=== PATIENT | male | born 1990 | race Caucasian/White ===

== ENCOUNTER 2017-06-27 12:07 | Emergency (ER) | payer OTHER ==
[2017-06-27] MEDS ORDERED: Zithromax 250 MG TABLET PO ONE (12:24)
[2017-06-27] MEDS ORDERED: Naprosyn 500 MG PO ONE (12:25)
[2017-06-27] MEDS ORDERED: Zithromax 250 MG TABLET ONE (12:27)
--- NOTE | 2017-06-27 12:30 | ERPHSYRPT ---
- History of Present Illness Time Seen by Provider: 06/27/17 12:18 Source: patient Exam Limitations: no limitations Patient Subjective Stated Complaint: pt reports swelling and tenderness to right ear-reports started a few days ago with symptoms worsening with time- deniesf ever-reports left ear was swollen but it had gotten better Triage Nursing Assessment: pt pink warm and [id number] easy and nonlabored- no drainage noted at thsi time Physician History: ABOUT 2 WEEKS AGO PT PT STARTED WITH A LEFT EARACHE WHICH HAS LARGELY RESOLVED. ABOUT 12 DAYS AGO PT STARTED WITH A RIGHT EARACHE WHICH IS STILL PAINFUL WITH SWELLING. PT DENIES FEVER, COUGH, CHEST PAIN, ABDOMINAL PAIN. Allergies/Adverse Reactions: No Known Drug Allergies Allergy (Unverified 06/27/17 12:17) Home Medications: Levothyroxine Sodium 88 Mcg [Synthroid 88 Mcg] 88 mcg PO DAILY 06/27/17 [ History] Hx Tetanus, Diphtheria Vaccination/Date Given: Yes Hx Influenza Vaccination/Date Given: No Hx Pneumococcal Vaccination/Date Given: No Immunizations Up to Date: Yes - Review of Systems Constitutional: No Fever Ears, Nose, & Throat: Ear Pain Respiratory: No Cough, No Dyspnea Cardiac: No Chest Pain All Other Systems: Reviewed and Negative - Past Medical History Pertinent Past Medical History: Yes Endocrine Medical History: Hyperthyroidism - Past Surgical History Past Surgical History: No - Social History Smoking Status: Never smoker Exposure to second hand smoke: No Drug Use: none Patient Lives Alone: No - Nursing Vital Signs Nursing Vital Signs: Initial Vital Signs Temperature 97.6 F 06/27/17 12:12 Pulse Rate 71 06/27/17 12:12 Respiratory Rate 16 06/27/17 12:12 Blood Pressure 159/87 06/27/17 12:12 O2 Sat by Pulse Oximetry 100 06/27/17 12:12 Pain Scale Pain Intensity 3 - Physical Exam General Appearance: alert Eye Exam: PERRL/EOMI Ears, Nose, Throat Exam: pharynx normal, moist mucous membranes, TM abnormal (R ) (RIGHT TM ERYTHEMATOUS; MILD EDEMA AND ERYTHEMA OF THE RIGHT EXTERNAL AUDITORY CANAL.) Neck Exam: normal inspection Respiratory Exam: lungs clear Cardiovascular Exam: normal heart sounds Gastrointestinal/Abdomen Exam: soft, normal bowel sounds Back Exam: normal range of motion Extremity Exam: normal range of motion Neurologic Exam: alert, cooperative Skin Exam: warm, dry SpO2 Interpretation: normal SpO2: 100 Oxygen Delivery: Room Air - Course Nursing assessment & vital signs reviewed: Yes - Departure Time of Disposition: 12:33 Departure Disposition: Home Clinical Impression: ROM (right otitis media), RIGHT OTITIS EXTERNA Condition: Stable Critical Care Time: No Instructions: Ear Infections (Otitis Media) (DC) Additional Instructions: FOLLOW UP WITH PRIVATE DOCTOR TOMORROW. Prescriptions: Naproxen [Naprosyn] 500 mg PO Q12H PRN PRN #20 tablet PRN Reason: Pain Azithromycin 250 mg [Zithromax 250 MG TABLET] 250 mg PO ZPACK #6 tablet Balta/Baci/Poly/Hc Ear Susp [Cortisporin Ear Drops 10 ml Suspension] 5 drops OT BID #1 bottle
[2017-06-27 12:45] VITALS: BP 138/80; PULSE 78; O2SAT 98
== END 2017-06-27 12:45 | disposition home or self-care (01) ==
LOC: ED 12:07
DX: H66.91 Otitis media, unspecified, right ear (principal); H60.91 Unspecified otitis externa, right ear
CPT/HCPCS: 99282; 99283; A9270-GY

== ENCOUNTER 2017-07-02 03:48 | Emergency (ER) | payer OTHER ==
[2017-07-02] MEDS ORDERED: XYLOCAINE 2% HCL 20 ML MDV IJ ONE (04:09)
[2017-07-02] MEDS ORDERED: XYLOCAINE 2% HCL 20 ML MDV ONE (04:14)
--- NOTE | 2017-07-02 04:17 | ERPHSYRPT ---
- History of Present Illness Time Seen by Provider: 07/02/17 04:07 Source: patient Exam Limitations: clinical condition Patient Subjective Stated Complaint: pt states he began having pain in his rt thumb tonight and has increased tonight. states his thumb was pinched between 2 peices of metal a few days ago but did not cause much pain at that time Triage Nursing Assessment: pt alert and oriented, answers questions approp. pt ambulatory with steady gait noted, respirations nonlabored with lungs cta. swelling and tenderness noted to rt thumb. Physician History: PATIENT STATES HE PINCHED HIS RIGHT THUMB BETWEEN 2 PIECES OF METAL 2 DAYS AGO NOW HAS THROBBING PAIN TO HIS THUMB, WORSE ADJACENT TO TIP OF THUMB. HE STATES A SHARP PIECE OF METAL PERFORATE HIS MID THUMB. HAS ASSOCIATED SWELLING WITH PAIN. PAIN HAS MARKEDLY INCREASED OVER THE PAST 2 HOURS, NOTICED CLEAR DRAINAGE FROM NAIL FOLD OF RIGHT THUMB Occurred: hours ago Method of Injury: direct blow Quality: constant Severity of Pain-Max: moderate Severity of Pain-Current: moderate Extremities Pain Location: thumb: right Modifying Factors: Improves With: movement Associated Symptoms: other (PAIN) Allergies/Adverse Reactions: No Known Drug Allergies Allergy (Verified 07/02/17 04:05) Home Medications: Levothyroxine Sodium 88 Mcg [Synthroid 88 Mcg] 88 mcg PO DAILY 06/27/17 [ History] Hx Tetanus, Diphtheria Vaccination/Date Given: No (unsure) Hx Influenza Vaccination/Date Given: No Hx Pneumococcal Vaccination/Date Given: No Immunizations Up to Date: No - Review of Systems Constitutional: No Symptoms Musculoskeletal: Injury, Joint Redness, Joint Pain, Joint Swelling - Past Medical History Pertinent Past Medical History: Yes Endocrine Medical History: Hypothyroidism - Past Surgical History Past Surgical History: No - Social History Smoking Status: Never smoker Exposure to second hand smoke: No Drug Use: none Patient Lives Alone: No - Nursing Vital Signs Nursing Vital Signs: Initial Vital Signs Temperature 97.6 F 07/02/17 03:53 Pulse Rate 93 H 07/02/17 03:53 Respiratory Rate 18 07/02/17 03:53 Blood Pressure 167/93 07/02/17 03:53 O2 Sat by Pulse Oximetry 100 07/02/17 03:53 Pain Scale Pain Intensity 10 - Physical Exam General Appearance: alert Hand Exam: soft tissue tenderness (RIGHT THUMB WITH MARKED TENDERNESS TIP OF DISTAL PHALANGX RADIAL ASPECT OF TIP, APPEARANCE OF SLIGHT BLUISH FOREIGN BELOW THUMB NAIL, SLIGHT SWELLING PROXIMAL AND DISTAL RIGHT THUMB WITH ERYTHEMA) , stiffness, swelling SpO2: 100 Oxygen Delivery: Room Air Procedures - Incision and Drainage Site: DISTAL RIGHT THUMB Anesthesia: 2% Lidocaine cc's of anesthesia: 4 Blade Size: 11 I & D Procedure: hibiclens prep Results: moderate amount pus (4-0 ETHILON -1 SUTURE) Ordered Tests: Active Orders 24 hr Category Date Time Status IV Insertion STAT Care 07/02/17 04:42 Active HAND (MINIMUM 3 VIEWS) Stat Exams 07/02/17 04:08 Taken CULTURE,WOUND Stat Lab 07/02/17 05:10 Ordered Medication Summary Discontinued Medications Generic Name Dose Route Start Last Admin Trade Name Freq PRN Reason Stop Dose Admin Hydrocodone Bitart/Acetaminophen 2 tab 07/02/17 05:23 [place] 10/325 Mg Tablet PO 07/02/17 05:24 SENT HOME W/ PATIENT ONE Diphtheria/Tetanus/Acell Pertussis 0.5 ml 07/02/17 05:10 07/02/17 05:14 Adacel Vial IM 07/02/17 05:11 0.5 ml .ONCE ONE Administration Diphtheria/Tetanus/Acell Pertussis Confirm 07/02/17 05:15 Adacel Vial Administered 07/02/17 05:16 Dose 0.5 ml IM .STK-MED ONE Ceftriaxone Sodium/Dextrose 1 g in 50 mls @ 100 mls/hr 07/02/17 04:42 05:03 Rocephin 1 Gm-D5w 50 Ml Bag IV 07/02/17 05:11 100 mls/hr STAT STA Administration Ceftriaxone Sodium/Dextrose Confirm 07/02/17 05:02 Rocephin 1 Gm-D5w 50 Ml Bag Administered 07/02/17 05:03 Dose 1 g in 50 mls @ ud IV .STK-MED ONE Lidocaine HCl 4 ml 07/02/17 04:09 07/02/17 05:03 Xylocaine 2% Hcl 20 Ml Mdv IJ 07/02/17 04:10 4 ml STAT ONE Administration Lidocaine HCl Confirm 07/02/17 04:14 Xylocaine 2% Hcl 20 Ml Mdv Administered 07/02/17 04:15 Dose 5 ml .ROUTE .STK-MED ONE - Progress Progress: improved, pain not gone completely Progress Note: 07/02/17 05:04 IV ROCEPHIN 1GM IVPB. Counseled pt/family regarding: diagnosis, need for follow-up, rad results - Departure Time of Disposition: 05:30 Departure Disposition: Home Clinical Impression: CELLULITIS RIGHT THUMB Condition: Stable Critical Care Time: No Referrals: DOCTOR,NO FAMILY [Primary Care Provider] - Additional Instructions: ANTIBIOTIC AUGMENTIN 875MG TWICE DAILY FOR 10 DAYS. NORCO 10/325 EVERY 4 HOURS NEEDED FOR PAIN. TYLENOL OR MOTRIN NEEDED FOR FEVER. CONSULT YOUR PRIMARY CARE PROVIDER FOR FOLLOWUP. HAVE SUTURE REMOVED AT 10 DAYS. WATCH FOR INCREASING SIGNS OF INFECTION, REDNESS, DRAINAGE OR SWELLING. Prescriptions: Hydrocodone/APAP 10/325 mg [[place] 10/325 MG Tablet] 1 tab PO Q4H PRN PRN # 15 tablet MDD 4 PRN Reason: Pain Amox Tr/Potass Clav. 875 mg [Augmentin 875-125 Tablet] 875 mg PO BID #20 tablet
[2017-07-02] MEDS ORDERED: ROCEPHIN 1 Gm-D5w 50 ml Bag** 1 G/50 ML IVPB IV STA (04:42)
[2017-07-02] MEDS ORDERED: ROCEPHIN 1 Gm-D5w 50 ml Bag** 1 G/50 ML IVPB IV ONE (05:02)
[2017-07-02] MEDS ORDERED: Adacel Vial IM ONE ×2 (05:10→05:15)
[2017-07-02] MEDS ORDERED: Norco 10/325 MG Tablet PO ONE (05:23)
[2017-07-02] MEDS ORDERED: Norco 10/325 MG Tablet ONE (05:27)
[2017-07-02 05:32] VITALS: BP 138/75; PULSE 74; O2SAT 98
--- NOTE | 2017-07-02 08:44 | XRAY ---
Indication: Thumb pain. Comparison: None 3 views of the right hand obtained using portable technique. No bony, articular, or soft tissue abnormalities.
== END 2017-07-02 05:45 | disposition home or self-care (01) ==
LOC: ED 03:48
PROC: 0H9FXZZ Drainage of Right Hand Skin, External Approach (ICD-10-PCS; principal; 2017-07-02)
DX: L03.011 Cellulitis of right finger (principal); W23.0XXA Caught, crushed, jammed, or pinched between moving objects, initial encounter; E03.9 Hypothyroidism, unspecified
CPT/HCPCS: 10060; 36000; 73130; 87070; 87077; 87186; 90471; 90715; 96365; 96372; 99283; 99284; J0696; A9270-GY

== ENCOUNTER 2017-09-05 22:07 | Emergency (ER) | payer OTHER ==
[2017-09-05 22:15] VITALS: BP 138/80; PULSE 88; O2SAT 98
--- NOTE | 2017-09-05 22:32 | ERPHSYRPT ---
- History of Present Illness Time Seen by Provider: 09/05/17 22:18 Source: patient Exam Limitations: no limitations Patient Subjective Stated Complaint: Pt states "I guess I am here because of anger issues. I got into an argument and now they think I am going to hurt someone I guess." Triage Nursing Assessment: Pt alert and oriented X 3, skin pwd. PT ambulates with an upright steady gait, able to speak in clear full sentences. PT in no apparent respiratory distress. Physician History: Pt states, he was having an argument with his ubaldo, he walked out, left his home at home after he told his " to get out of the house". She called police and they caught him walking on the street. He denies any injury, taking any drugs or alcohol, denies making any threats against his , denies being suicidal or homicidal. He has the history of " anxiety", "stress" he has been treated as inpatient in [facility]ry about 1 month ago, because of "anger issues". He is calm and cooperative, denies any complaints. Timing/Duration: today Severity of Symptoms-Max: mild Severity of Symptoms-Current: mild Context related to: spouse Suicidal thoughts: other (denies) Associated Symptoms: denies symptoms Previous symptoms: same symptoms as today Allergies/Adverse Reactions: No Known Drug Allergies Allergy (Verified 07/02/17 04:05) Home Medications: Levothyroxine Sodium 88 Mcg [Synthroid 88 Mcg] 88 mcg PO DAILY 06/27/17 [ History] Bupropion HCl [Wellbutrin] 75 mg PO BID 09/05/17 [History] Dextroamphetamine/Amphetamine [Adderall 15 mg Tablet] 30 mg PO DAILY 09/05/17 [ History] Gabapentin 400 mg PO BID 09/05/17 [History] Hx Tetanus, Diphtheria Vaccination/Date Given: Yes Hx Influenza Vaccination/Date Given: Yes Hx Pneumococcal Vaccination/Date Given: No Immunizations Up to Date: Yes - Past Medical History Pertinent Past Medical History: Yes Endocrine Medical History: Hypothyroidism Other Medical History: PTSD, anger issues - Past Surgical History Past Surgical History: No - Social History Smoking Status: Never smoker Exposure to second hand smoke: No Drug Use: none Patient Lives Alone: No - Review of Systems Constitutional: No Symptoms Psychological: Anxiety, No Suicidal Ideations, No Homicidal Ideations, No Hallucinations All Other Systems: Reviewed and Negative - Nursing Vital Signs Nursing Vital Signs: Initial Vital Signs Temperature 98.8 F 09/05/17 22:08 Pulse Rate 88 09/05/17 22:08 Respiratory Rate 18 09/05/17 22:08 Blood Pressure 138/80 09/05/17 22:08 O2 Sat by Pulse Oximetry 98 09/05/17 22:08 Pain Scale Pain Intensity 0 - Physical Exam General Appearance: no apparent distress Eyes, Ears, Nose, Throat Exam: normal ENT inspection, pharynx normal Neck Exam: normal inspection, non-tender, supple Respiratory Exam: normal breath sounds, lungs clear, airway intact Cardiovascular Exam: regular rate/rhythm, normal heart sounds, normal peripheral pulses, No murmur Gastrointestinal/Abdominal Exam: soft, normal bowel sounds, No tenderness Current Suicidality: denies suicide plan Neurological Exam: alert, normal mood/affect, calm, oriented x 3 Appearance: appropriate appearance Behavior/Eye Contact/Speech: alert & cooperative Thoughts/Hallucinations: normal thought pattern, no apparent hallucination Skin Exam: normal color, warm, dry SpO2 Interpretation: normal SpO2: 98 Oxygen Delivery: Room Air - Course Nursing assessment & vital signs reviewed: Yes EKG Interpreted by Me: RATE (85/min), NORMAL AXIS, NORMAL INTERVALS, NORMAL ST-T Ordered Tests: Active Orders 24 hr Category Date Time Status EKG-ER Only STAT Care 09/05/17 22:26 Active ACETAMINOPHEN Stat Lab 09/05/17 22:45 Completed CBC W DIFF Stat Lab 09/05/17 22:45 Completed CMP Stat Lab 09/05/17 22:45 Completed ETHYL ALCOHOL Stat Lab 09/05/17 22:45 Completed SALICYLATE Stat Lab 09/05/17 22:45 Completed TSH [TSH, 3RD Generation] Stat Lab 09/05/17 22:45 Completed UA W/RFX UR CULTURE Stat Lab 09/05/17 22:45 Completed Urine Triage Profile Stat Lab 09/05/17 22:45 Completed Lab/Rad Data: Laboratory Result Diagrams 09/05/17 22:45 09/05/17 22:45 Laboratory Results 09/05/17 09/05/17 09/05/17 Range/Units 22:45 22:45 22:45 WBC (4.0-10.5) K/mm3 RBC (4.1-5.6) M/mm3 Hgb (12.5-18.0) gm/dl Hct (42-50) % MCV (78-100) fl MCH (26-32) pg MCHC (32-36) g/dl RDW (11.5-14.0) % Plt Count (150-450) K/mm3 MPV (6-9.5) fl Gran % (36.0-66.0) % Eos # (Auto) (0-0.5) Absolute Lymphs (auto) (1.0-4.6) Absolute Monos (auto) (0.0-1.3) Lymphocytes % (24.0-44.0) % Monocytes % (0.0-12.0) % Eosinophils % (0.00-5.0) % Basophils % (0.0-0.4) % Absolute Granulocytes (1.4-6.9) Basophils # (0-0.4) Sodium (137-145) mmol/L Potassium (3.5-5.1) mmol/L Chloride (98-107) mmol/L Carbon Dioxide (22-30) mmol/L Anion Gap (5-15) MEQ/L BUN (9-20) mg/dL Creatinine (0.66-1.25) mg/dL Estimated GFR ML/MIN Glucose (74-106) mg/dL Calcium (8.4-10.2) mg/dL Total Bilirubin (0.2-1.3) mg/dL AST (17-59) U/L ALT (0-50) U/L Alkaline Phosphatase (38-126) U/L Serum Total Protein (6.3-8.2) g/dL Albumin (3.5-5.0) g/dL TSH 3rd Generation 6.840 H (0.47-4.68) mIU/L Ur Collection Type CLEAN CATCH Urine Color YELLOW (YELLOW) Urine Appearance CLEAR (CLEAR) Urine pH 5.0 (5-6) Ur Specific [place] 1.005 (1.005-1.025) Urine Protein NEGATIVE (Negative) Urine Ketones NEGATIVE (NEGATIVE) Urine Blood NEGATIVE (0-5) Matthew/ul Urine Nitrite NEGATIVE (NEGATIVE) Urine Bilirubin NEGATIVE (NEGATIVE) Urine Urobilinogen NORMAL (0-1) mg/dL Ur Leukocyte Esterase NEGATIVE (NEGATIVE) Urine Culture Reflexed NO (NO) Urine Glucose NEGATIVE (NEGATIVE) mg/dL Salicylates (2-20) mg/dL Urine Opiates Level NEGATIVE (NEGATIVE) Ur Methadone NEGATIVE (NEGATIVE) Acetaminophen (10-30) ug/ml Urine Barbiturates NEGATIVE (NEGATIVE) Ur Phencyclidine (PCP) NEGATIVE (NEGATIVE) Urine Amphetamine NEGATIVE (NEGATIVE) U Benzodiazepine Level NEGATIVE (NEGATIVE) Urine Cocaine NEGATIVE (NEGATIVE) Urine Marijuana (THC) NEGATIVE (NEGATIVE) Ethyl Alcohol (0-10) mg/dL Specimen Received 09/05/17 2300 09/05/17 09/05/17 Range/Units 22:45 22:45 WBC 6.3 (4.0-10.5) K/mm3 RBC 4.36 (4.1-5.6) M/mm3 Hgb 14.4 (12.5-18.0) gm/dl Hct 41.2 L (42-50) % MCV 94.5 (78-100) fl MCH 33.0 H (26-32) pg MCHC 35.0 (32-36) g/dl RDW 12.1 (11.5-14.0) % Plt Count 201 (150-450) K/mm3 MPV 9.9 H (6-9.5) fl Gran % 56.0 (36.0-66.0) % Eos # (Auto) 0.28 (0-0.5) Absolute Lymphs (auto) 1.85 (1.0-4.6) Absolute Monos (auto) 0.56 (0.0-1.3) Lymphocytes % 29.5 (24.0-44.0) % Monocytes % 8.9 (0.0-12.0) % Eosinophils % 4.5 (0.00-5.0) % Basophils % 1.1 (0.0-0.4) % Absolute Granulocytes 3.52 (1.4-6.9) Basophils # 0.07 (0-0.4) Sodium 141 (137-145) mmol/L Potassium 3.7 (3.5-5.1) mmol/L Chloride 107 (98-107) mmol/L Carbon Dioxide 21 L (22-30) mmol/L Anion Gap 16.4 H (5-15) MEQ/L BUN 13 (9-20) mg/dL Creatinine 1.05 (0.66-1.25) mg/dL Estimated GFR > 60.0 ML/MIN Glucose 85 (74-106) mg/dL Calcium 9.0 (8.4-10.2) mg/dL Total Bilirubin 0.30 (0.2-1.3) mg/dL AST 32 (17-59) U/L ALT 23 (0-50) U/L Alkaline Phosphatase 42 (38-126) U/L Serum Total Protein 6.9 (6.3-8.2) g/dL Albumin 4.2 (3.5-5.0) g/dL TSH 3rd Generation (0.47-4.68) mIU/L Ur Collection Type Urine Color (YELLOW) Urine Appearance (CLEAR) Urine pH (5-6) Ur Specific [place] (1.005-1.025) Urine Protein (Negative) Urine Ketones (NEGATIVE) Urine Blood (0-5) Matthew/ul Urine Nitrite (NEGATIVE) Urine Bilirubin (NEGATIVE) Urine Urobilinogen (0-1) mg/dL Ur Leukocyte Esterase (NEGATIVE) Urine Culture Reflexed (NO) Urine Glucose (NEGATIVE) mg/dL Salicylates < 1.0 L (2-20) mg/dL Urine Opiates Level (NEGATIVE) Ur Methadone (NEGATIVE) Acetaminophen < 10 L (10-30) ug/ml Urine Barbiturates (NEGATIVE) Ur Phencyclidine (PCP) (NEGATIVE) Urine Amphetamine (NEGATIVE) U Benzodiazepine Level (NEGATIVE) Urine Cocaine (NEGATIVE) Urine Marijuana (THC) (NEGATIVE) Ethyl Alcohol 96 H (0-10) mg/dL Specimen Received - Progress Progress: unchanged Progress Note: 09/05/17 23:23 Pt has remained calm, and controlled his behavior, denies any complaints. He is medically clear for psychiatric evaluation. [facility] will be contacted. 09/06/17 01:18 Telepsychiatry consult were completed, he can be released and advised to follow up as outpatient with his therapist on September 10, at [place] outpatient therapy session. Counseled pt/family regarding: lab results, diagnosis - Departure Time of Disposition: Departure Disposition: Home Clinical Impression: Anxiety Condition: Stable Critical Care Time: No Referrals: DOCTOR,NO FAMILY [Primary Care Provider] - Instructions: Anxiety, Adult (DC) Additional Instructions: Follow up with [place] outpatient therapy as scheduled on September 10! Return if severe anxiety, becoming agitated, or suicidal, depressed!
[2017-09-05 22:54] LABS: BASOPHIL % 1.1 % (0.0-0.4); Basophil (Absolute #) 0.07 (0-0.4); Eosinophil % 4.5 % (0.00-5.0); Eosinophil (Absolute #) 0.28 (0-0.5); Granulocyte Absolute (ANC) 3.52 (1.4-6.9); Hematocrit 41.2 % (42-50); Hemoglobin 14.4 gm/dl (12.5-18.0); Lymphocyte (Absolute #) 1.85 (1.0-4.6); Lymphocytes % 29.5 % (24.0-44.0); Mean Cell Volume 94.5 fl (78-100); Mean Platelet Volume 9.9 fl (6-9.5); Monocyte (Absolute #) 0.56 (0.0-1.3); Monocytes % 8.9 % (0.0-12.0); Platelet Count 201 K/mm3 (150-450); Red Blood Count 4.36 M/mm3 (4.1-5.6); Red Cell Distribution Width 12.1 % (11.5-14.0); White Blood Count 6.3 K/mm3 (4.0-10.5)
[2017-09-05 23:09] LABS: ALBUMIN 4.2 g/dL (3.5-5.0); ALKALINE PHOSPHATASE 42 U/L (38-126); ANION GAP 16.4 MEQ/L (5-15); BLOOD UREA NITROGEN 13 mg/dL (9-20); CHLORIDE 107 mmol/L (98-107); Carbon Dioxide 21 mmol/L (22-30); Creatinine 1 1.05 mg/dL (0.66-1.25); ETHYL ALCOHOL 96 mg/dL (0-10); Glucose 85 mg/dL (74-106); Potassium 3.7 mmol/L (3.5-5.1); SGOT/AST 32 U/L (17-59); SGPT/ALT 23 U/L (0-50); SODIUM 141 mmol/L (137-145); Total Protein 6.9 g/dL (6.3-8.2)
[2017-09-05 23:15] LABS: Amphetamine,Urine NEGATIVE (NEGATIVE); Barbiturate,Urine NEGATIVE (NEGATIVE); Benzodiazepine,Urine NEGATIVE (NEGATIVE); Cocaine,Urine NEGATIVE (NEGATIVE); Methadone,Urine NEGATIVE (NEGATIVE); Opiate,Urine NEGATIVE (NEGATIVE); PCP,Urine NEGATIVE (NEGATIVE); THC,Urine NEGATIVE (NEGATIVE)
[2017-09-05 23:18] LABS: ACETAMINOPHEN < 10 ug/ml (10-30); SALICYLATE < 1.0 mg/dL (2-20)
[2017-09-05 23:24] LABS: Appearance CLEAR (CLEAR)
[2017-09-05 23:25] LABS: Bilirubin NEGATIVE (NEGATIVE); Blood NEGATIVE Ery/ul (0-5); Glucose NEGATIVE (NEGATIVE); Ketones NEGATIVE (NEGATIVE); Leukocyte Esterase NEGATIVE (NEGATIVE); Nitrite NEGATIVE (NEGATIVE); Protein,Urine Dip NEGATIVE (Negative); Specific Gravity 1.005 (1.005-1.025); Urobilinogen NORMAL mg/dL (0-1)
== END 2017-09-06 01:33 | disposition home or self-care (01) ==
LOC: ED 22:07
DX: F41.9 Anxiety disorder, unspecified (principal); Z79.899 Other long term (current) drug therapy
CPT/HCPCS: 36415; 80053; 80307; 81002; 84443; 85025; 93005; 99284; G0481; G0480